=== PATIENT | male | born 1990 | race Caucasian/White ===

== ENCOUNTER 2017-10-13 02:24 | Emergency (ER) | payer MEDICAID ==
[2017-10-13 03:05] VITALS: BP 133/69; PULSE 101; RESP 18; TEMP 97.9; O2SAT 98
[2017-10-13 03:16] LABS: MEAN CELL VOLUME 88.8 fl (80.0-94.0); MEAN CORPUSCULAR HEMOGLOBIN 30.2 pg (27.0-31.0); RBC 4.65 Mil/uL (4.40-5.90); RED CELL DISTRIBUTION WIDTH 14.1 % (11.5-14.5); WHITE BLOOD COUNT 9.5 K/uL (4.8-10.8)
[2017-10-13 03:28] LABS: BLOOD UREA NITROGEN 12 mg/dl (9-20); CALCIUM 9.1 mg/dL (8.4-10.2); GFR NON-AFRICAN AMERICAN > 60
--- NOTE | 2017-10-13 03:35 | ED PDOC ---
HPI: Chest Pain Time Seen by Provider: 10/13/17 02:34 Chief Complaint (Nursing): Chest Pain Chief Complaint (Provider): Chest Pain History Per: Patient History/Exam Limitations: intoxication Additional Complaint(s): Patient is a 27 y/o male with history of substance abuse, alcohol abuse, and bipolar disorder who was brought to the ED because of substance abuse and alcohol intoxication however he is additionally complaining of chest pain. Patient was drinking alcohol but called in because he was feeling chest pain/ tightness. Patient requests to be seen by psychiatry. History is limited because patient is too intoxicated to answer questions. PMD: None provided Past Medical History Reviewed: Historical Data, Nursing Documentation, Vital Signs Vital Signs: Last Vital Signs Temp 97.9 F 10/13/17 03:01 Pulse 101 H 10/13/17 03:01 Resp 18 10/13/17 03:01 BP 133/69 10/13/17 03:01 Pulse Ox 98 10/13/17 04:19 - Medical History PMH: Anxiety, Depression Denies: Arthritis, Diabetes, Hepatitis, HIV, HTN, Pneumonia, Chronic Kidney Disease, Rheumatoid Arthritis, Seizures, Sexually Transmitted Disease - Surgical History Surgical History: No Surg Hx - Family History Family History: States: Unknown Family Hx - Immunization History Hx Tetanus Toxoid Vaccination: No Hx Influenza Vaccination: No Hx Pneumococcal Vaccination: No - Home Medications Home Medications: Ambulatory Orders Medication Instructions Recorded Benztropine [Cogentin] 1 mg PO BID #60 tab 10/10/17 Divalproex [Depakote DR] 500 mg PO BID #60 tcp 10/10/17 risperiDONE [RisperDAL Tab] 1 mg PO BID #60 tab 10/10/17 - Allergies Allergies/Adverse Reactions: Allergies Allergy/AdvReac Type Severity Reaction Status Date / Time No Known Allergies Allergy Verified 10/05/17 17:59 Review of Systems ROS Statement: Except As Marked, All Systems Reviewed And Found Negative Physical Exam - Reviewed Nursing Documentation Reviewed: Yes Vital Signs Reviewed: Yes - Physical Exam Appears: Positive for: Non-toxic. Negative for: Uncomfortable (agitated) Head Exam: Positive for: ATRAUMATIC, NORMOCEPHALIC Skin: Positive for: Normal Color, Warm, Dry Eye Exam: Positive for: Normal appearance, EOMI Cardiovascular/Chest: Positive for: Tachycardia Respiratory: Positive for: Normal Breath Sounds. Negative for: Respiratory Distress Extremity: Positive for: Normal ROM. Negative for: Pedal Edema, Deformity Neurologic/Psych: Positive for: Alert, Oriented, Gait (steady). Negative for: Motor/Sensory Deficits - Laboratory Results Result Diagrams: 10/13/17 03:11 10/13/17 03:11 - ECG O2 Sat by Pulse Oximetry: 98 (RA) Pulse Ox Interpretation: Normal Medical Decision Making Medical Decision Making: Time: 02:50 Impression: Alcohol intoxication and chest pain. Patient will be monitored for clinical sobriety. Requset for crisis evaluation as per patient's request. Chest pain possibly from substance abuse, r/o ACS Initial Plan: --EKG --Alcohol serum --BMP --Drug screen --Troponin I --CBC --Ativan 2 mg IM --Haldol 5 mg IM --Restraints were placed due to patient being combative and appears psychotic and agitated possibly from substance induced psychosis. 0330 Restrains were removed. Patient is calmer. We will monitor. 0400 Patient is calm now. Patient is improved. Patient is stable for discharge. Scribe Attestation: Documented by Jimmy Bustillos, acting as a scribe for Dexter Ly MD. Provider Scribe Attestation: All medical record entries made by the Scribe were at my direction and personally dictated by me. I have reviewed the chart and agree that the record accurately reflects my personal performance of the history, physical exam, medical decision making, and the department course for this patient. I have also personally directed, reviewed, and agree with the discharge instructions and disposition. Disposition - Clinical Impression Clinical Impression: Chest pain, Alcohol intoxication, Agitation - Patient ED Disposition Is Patient to be Admitted: No Doctor Will See Patient In The: Office Counseled Patient/Family Regarding: Studies Performed, Diagnosis, Need For Followup - Disposition Referrals: [facility] [Outside] Disposition: Routine/Home Disposition Time: 03:49 Condition: IMPROVED Additional Instructions: Follow up with your PCP in 2-3 days. Instructions: Chest Pain, Alcohol Abuse and Alcoholism (DC)
--- NOTE | 2017-10-13 07:49 | CARD ---
APPROVED REPORT Date of service: 10/13/2017 <Conclusion> Normal sinus rhythm Normal ECG
== END 2017-10-13 04:05 | disposition home or self-care (01) ==
LOC: H.ER 02:24
DX: R07.89 Other chest pain (principal); F10.10 Alcohol abuse, uncomplicated; R45.1 Restlessness and agitation

== ENCOUNTER 2017-10-18 18:59 | Emergency (ER) | payer MEDICAID ==
[2017-10-18 19:05] VITALS: BMI 25.8
--- NOTE | 2017-10-18 22:16 | ED PDOC ---
HPI: Psych/Substance Abuse Time Seen by Provider: 10/18/17 19:36 Chief Complaint (Nursing): Psychiatric Evaluation Chief Complaint (Provider): Psychiatric evaluation ED Caveat: Uncooperative History/Exam Limitations: clinical condition Additional Complaint(s): 27yo male brought to ER by EMS after he was noted to be agitated outside. Upon arrival patient is increasingly agitated and uncooperative so a full HPI and ROS is limited. Past Medical History Reviewed: Historical Data, Nursing Documentation, Vital Signs Vital Signs: Last Vital Signs Temp 98.3 F 10/18/17 19:04 Pulse 98 H 10/18/17 19:04 Resp 16 10/18/17 19:04 BP 118/62 10/18/17 19:04 Pulse Ox 95 10/18/17 19:04 - Medical History PMH: Anxiety, Bipolar Disorder, Depression Denies: Arthritis, Diabetes (Patient denied), Hepatitis (Patient denied), HIV (Patient denied), HTN (Patient denied), Pneumonia, Chronic Kidney Disease, Rheumatoid Arthritis, Seizures (Patient denied), Sexually Transmitted Disease ( Patient denied) - Surgical History Surgical History: No Surg Hx - Family History Family History: States: Unknown Family Hx - Immunization History Hx Tetanus Toxoid Vaccination: No Hx Influenza Vaccination: No Hx Pneumococcal Vaccination: No - Home Medications Home Medications: Ambulatory Orders Medication Instructions Recorded Benztropine [Cogentin] 1 mg PO BID #60 tab 10/10/17 Divalproex [Depakote DR] 500 mg PO BID #60 tcp 10/10/17 risperiDONE [RisperDAL Tab] 1 mg PO BID #60 tab 10/10/17 - Allergies Allergies/Adverse Reactions: Allergies Allergy/AdvReac Type Severity Reaction Status Date / Time No Known Allergies Allergy Verified 10/18/17 19:07 Review of Systems Review Of Systems: ROS cannot be obtained secondary to pt's inabilty to answer questions. (uncooperative) Physical Exam - Reviewed Nursing Documentation Reviewed: Yes Vital Signs Reviewed: Yes - Physical Exam Appears: Positive for: No Acute Distress Head Exam: Positive for: ATRAUMATIC, NORMAL INSPECTION, NORMOCEPHALIC Skin: Positive for: Normal Color Eye Exam: Positive for: Normal appearance Neck: Positive for: Supple Cardiovascular/Chest: Positive for: Regular Rate, Rhythm Respiratory: Positive for: Normal Breath Sounds Gastrointestinal/Abdominal: Positive for: Soft Extremity: Positive for: Normal ROM Neurologic/Psych: Positive for: Alert, Gait (steady) - Laboratory Results Result Diagrams: 10/18/17 22:53 10/18/17 22:53 - ECG O2 Sat by Pulse Oximetry: 95 (RA) Pulse Ox Interpretation: Normal Medical Decision Making Medical Decision Making: Impression: Agitation Plan: -- Patient agitated, verbally abusive upon arrival. Haldol 5mg IM and Ativan 2mg IM ordered. Patient placed in 4-point restraints due to risk for harm to self and staff. 00:00 Pt medically cleared for psychiatric evaluation. Scribe Attestation: Documented by Mary Ann Iniguez, acting as a scribe for Jenn Mckeon MD. Provider Scribe Attestation: All medical record entries made by the Scribe were at my direction and personally dictated by me. I have reviewed the chart and agree that the record accurately reflects my personal performance of the history, physical exam, medical decision making, and the department course for this patient. I have also personally directed, reviewed, and agree with the discharge instructions and disposition. Disposition - Clinical Impression Clinical Impression: Mood disorder - Disposition Disposition: Transfer of Care Disposition Time: 00:00 (.) Condition: STABLE Forms: [employer] (Polish) Patient Signed Over To: Juan Greco
[2017-10-18 22:59] LABS: BASO # 0.1 K/uL (0.0-0.2); BASO % 0.8 % (0.0-2.0); EOS # 0.1 K/uL (0.0-0.7); EOS % 1.5 % (0.0-4.0); HEMOGLOBIN 12.8 g/dL (12.0-18.0); LYMPH # 2.9 K/uL (1.0-4.3); MEAN CELL VOLUME 88.1 fl (80.0-94.0); MEAN CORPUSCULAR HEMOGLOBIN 30.2 pg (27.0-31.0); MEAN CORPUSCULAR HGB CONC 34.3 g/dL (33.0-37.0); MEAN PLATELET VOLUME 8.1 fl (7.2-11.7); MONO # 0.8 K/uL (0.0-0.8); MONO % 10.1 % (0.0-10.0); NEUT # 4.4 K/uL (1.8-7.0); NEUT % 52.6 % (50.0-75.0); NRBC % 0.1 % (0.0-0.0); RBC 4.24 Mil/uL (4.40-5.90); RED CELL DISTRIBUTION WIDTH 13.7 % (11.5-14.5); WHITE BLOOD COUNT 8.4 K/uL (4.8-10.8)
[2017-10-18 23:09] LABS: ALB/GLOB RATIO 1.5 (1.0-2.1); ALBUMIN 4.3 g/dL (3.5-5.0); ALT/SGPT 33 U/L (21-72); AST/SGOT 34 U/L (17-59); BLOOD UREA NITROGEN 11 mg/dl (9-20); CALCIUM 9.5 mg/dL (8.4-10.2); GFR NON-AFRICAN AMERICAN > 60
--- NOTE | 2017-10-19 00:09 | ED PDOC ---
- Laboratory Results Result Diagrams: 10/18/17 22:53 10/18/17 22:53 - ECG O2 Sat by Pulse Oximetry: 95 (RA) Pulse Ox Interpretation: Normal Medical Decision Making Medical Decision Making: Time: 00:00 --Patient endorsed to this provider by Dr. Mckeon, pending crisis evaluation. Time: 1:08 --Patient evaluated by crisis and is medically stable for discharge home. Diagnosis mood disorder. Scribe Attestation: Documented by Shonda Love, acting as a scribe for Juan Greco MD Provider Scribe Attestation: All medical record entries made by the Scribe were at my direction and personally dictated by me. I have reviewed the chart and agree that the record accurately reflects my personal performance of the history, physical exam, medical decision making, and the department course for this patient. I have also personally directed, reviewed, and agree with the discharge instructions and disposition. Disposition - Clinical Impression Clinical Impression: Mood disorder - POA Present On Arrival: None - Disposition Disposition: Routine/Home Disposition Time: 01:08 Condition: STABLE Forms: [employer] (Maltese)
[2017-10-19 00:10] VITALS: BP 132/80; PULSE 81; RESP 15; TEMP 98.5
--- NOTE | 2017-10-19 06:08 | CARD ---
APPROVED REPORT Date of service: 10/18/2017 <Conclusion> Normal sinus rhythm Normal ECG
[2017-10-19 06:29] VITALS: O2SAT 95
--- NOTE | 2017-10-19 09:17 | RAD ---
Date of service: 10/18/2017 HISTORY: Medical clearance COMPARISON: No prior. FINDINGS: LUNGS: No active pulmonary disease. PLEURA: No significant pleural effusion identified, no pneumothorax apparent. CARDIOVASCULAR: Normal. OSSEOUS STRUCTURES: No significant abnormalities. VISUALIZED UPPER ABDOMEN: Normal. OTHER FINDINGS: None. IMPRESSION: No acute cardiopulmonary disease appreciated.
== END 2017-10-19 04:15 | disposition home or self-care (01) ==
LOC: H.ER 18:59
DX: F39 Unspecified mood [affective] disorder (principal); F31.9 Bipolar disorder, unspecified; F41.9 Anxiety disorder, unspecified
CPT/HCPCS: 71045; 80053; 80320; 85025; 93005; 96372; 99283; J1630; J2060